=== PATIENT | female | born 1970 | race Caucasian/White ===

== ENCOUNTER 2024-08-16 04:14 | Day surgery (SDC) | payer OTHER ==
[2024-08-13 16:55] VITALS: BMI 32.5
[2024-08-16] MEDS ORDERED: BUPIVACAINE HCL/PF 0.5% (5MG/ML) 10 ML VIAL ONE (07:18)
[2024-08-16] MEDS ORDERED: MIDAZOLAM HCL 2 MG/2 ML SINGLE DOSE VIAL ONE (08:12)
[2024-08-16] MEDS ORDERED: PROPOFOL 40 ML ONE (08:12)
[2024-08-16] MEDS ORDERED: LIDOCAINE HCL/PF 2% SDV 5ML VIAL ONE (08:12)
[2024-08-16] MEDS ORDERED: ROCURONIUM BROMIDE 50 MG/5 ML SYRINGE ONE (08:14)
[2024-08-16] MEDS ORDERED: DEXAMETHASONE SOD PHOSPHATE 4 MG/1 ML VIAL ONE (08:33)
[2024-08-16] MEDS ORDERED: ONDANSETRON 4 MG/2 ML VIAL ONE (08:33)
[2024-08-16] MEDS ORDERED: ceFAZolin SODIUM 1 GM VIAL ONE (08:33)
[2024-08-16] MEDS: BUPIVACAINE HCL/PF 0.5% (5MG/ML) 10 ML VIAL IJ ONE ×2 (09:14)
[2024-08-16] MEDS ORDERED: SUGAMMADEX SODIUM 200 MG/2 ML VIAL ONE (09:18)
[2024-08-16] MEDS ORDERED: ONDANSETRON 4 MG/2 ML VIAL IVPUSH PRN (09:40)
[2024-08-16] MEDS ORDERED: LACTATED RINGERS SOLUTION 1,000 ML IV SCH (09:45)
[2024-08-16] MEDS: ACETAMINOPHEN 1000 MG/100 ML BAG IVPB ONE (09:47)
[2024-08-16] MEDS ORDERED: HYDROmorphone HCl 2 MG/ML VIAL IVPUSH PRN (11:33)
[2024-08-16] MEDS: KETOROLAC TROMETHAMINE 30 MG/1 ML VIAL IVPUSH ONE (11:50)
[2024-08-16 13:10] VITALS: RESP 20
[2024-08-16 13:13] VITALS: BP 130/72; PULSE 78; TEMP 97.4
== END 2024-08-16 13:37 | disposition home or self-care (01) ==
LOC: JASU-SURG 04:14
PROVIDERS: ATTEND Surgery
PROC: 0FT44ZZ Resection of Gallbladder, Percutaneous Endoscopic Approach (ICD-10-PCS; principal; 2024-08-16 08:42)
DX: K80.10 Calculus of gallbladder with chronic cholecystitis without obstruction (principal)
CPT/HCPCS: 81025; 82962; 88307-TC; 94760; J0131